=== PATIENT | female | born 1985 | race Caucasian/White ===

== ENCOUNTER 2019-01-13 14:30 | Outpatient (RCR) | payer BC ==
[2015-03-22 13:50] VITALS: BP 129/86
[~2019-01-13 14:30] MED LIST: LEXAPRO 10MG10 MG PO; NORCO 325 MG-51 TA1 PO; ZYRTEC ALLERGY10 MG PO
== END 2019-01-13 15:00 | disposition still patient (30) ==
LOC: PT 14:30
DX: M94.261 Chondromalacia, right knee (principal); Z98.890 Other specified postprocedural states